=== PATIENT | male | born 1970 | race Caucasian/White ===

== ENCOUNTER 2022-11-30 10:09 | Emergency (ER) | payer SELFPAY ==
[2022-11-30] VITALS (16 sets, daily range): BP systolic 130–204; BP diastolic 97–137
[~2022-11-30] VITALS: Ht 167.6 cm; Wt 65.0 kg
[2022-11-30 10:48] LABS: BASO% 1.2 % (0-3); EOS% 0.8 % (0-8); LYMPH% 4.2 % (15-41); MEAN CELL VOLUME 89.6 fL CALC (80.0-100.0); MEAN CORPUSCULAR HGB 29.7 pG CALC (26.0-32.0); MEAN CORPUSCULAR HGB CONC 33.1 g/dL CAL (32.0-36.0); MONO% 6.7 % (2-13); NEUT# 10.57 thou/uL (1.82-7.42); NEUT% 86.1 % (42-76); RED BLOOD COUNT 6.74 mill/uL (4.70-6.10); RED CELL DISTRI WIDTH 14.6 % (11.5-15.5)
[2022-11-30 10:52] LABS: HEMATOCRIT 60.4 % (39.0-50.0)
[2022-11-30 10:54] LABS: ALBUMIN 4.6 g/dL (3.2-5.0); ALKALINE PHOSPHATASE 74 u/l (38-126); ANION GAP 17 (6-22 (CALC)); BILIRUBIN, TOTAL 1.5 mg/dL (0.2-1.3); BUN 12 mg/dL (9-20); BUN/CREATININE RATIO 12 (12-20 (CALC)); CARBON DIOXIDE 21 mmol/l (22-30); CHLORIDE 104 mmol/l (95-108); GFR FOR AFR.AMER. > 60 ML/MIN (>=60 (CALC)); GFR OTHER RACES > 60 ML/MIN (>=60 (CALC)); POTASSIUM 3.8 mmol/l (3.5-5.1); SGOT/AST 34 u/l (17-59); SODIUM 138 mmol/l (137-146); TOTAL PROTEIN 7.6 g/dL (6.3-8.2)
[2022-11-30] MEDS ORDERED: LISINOPRIL20 M1 PO (14:05)
== END 2022-11-30 15:03 | disposition home or self-care (01) | DRG 305 ==
LOC: ED 10:09
PROVIDERS: Family Medicine
DX: I10 Essential (primary) hypertension (principal); D45 Polycythemia vera